=== PATIENT | male | born 1970 | race Caucasian/White ===

== ENCOUNTER 2018-05-21 17:16 | Inpatient (IN) | payer BC, OTHER ==
[~2018-05-21] VITALS: Ht 175.3 cm; Wt 78.9 kg
[2018-05-21 17:45] VITALS: BP 115/85
--- NOTE | 2018-05-21 18:00 | NUR ---
pre-assessment: pt was seen in intake office and appears to be severely intoxicated with stimulants, pt is over stimulated and hyper. pt has scattered thoughts. pt has own breathalyzer and has to check it at very ceratin times. pt's v/s stable. explained unit protocols and procedures.
[2018-05-21] MEDS ORDERED: FLUT10.62 IH (18:43)
[2018-05-21] MEDS ORDERED: FLUT100D IH (18:43)
[2018-05-21] MEDS ORDERED: BUPR300T54 PO (18:46)
[2018-05-21] MEDS ORDERED: LAMO200T2 PO (18:46)
--- NOTE | 2018-05-21 20:00 | NUR ---
Admission The patient is a 48 year old male who presents to [facility] for medically supervised withdrawal from ETOH-Vodka and is also noted to currently be using Methamphetamines and Cocaine. Patient was escorted on to the during AM shift. Skin check rendered by morning RACKET STRINGER and endorsing nurse with skin noted to be clear and intact. Patient is noted to be ambulatory with steady gait. Patient is noted to be anxious, hyper vigilant, easily irritable, racing thoughts, restless, with depressed affect. He is noted to be disheveled and unkempt with dirty finger nails. Patient is noted to answer questions with quick one word answers, prompting for patient to repeat himself. He is alert and oriented x4, speech is clear, but patient avoids eye contact and is noted to during assessment to keep his eyes closed. Patient reports his substance use as: 1. ETOH-Vodka: patient took his first drink of vodka at the age of 14. He currently is drinking 120ml of vodka every night approx at 2000. His last drink was 05/21/18 at 1000 drinking 120mls of vodka. Patient also explains of drinking 180ml on the weekends which consist of Friday, Friday, and Friday. 2. Methamphetamines: patient reports first using at the age of 46. He is currently using an ounce a week, using 3.5 GM a day. He reports using via IV, inhalation, and intranasal. He describes it as Hot railing. His last use noted 05/21/18 at 1000 using 3.5GM via intranasal. 3. Cocaine: Patient reports of first using cocaine at the age of 29. He describes of using a 3.5GM throughout the week and using 1GM daily via intranasal, IV, or inhalation. Patient reports last use 05/21/18 1000 using 1GM via inhalation. When asked if patient was experiencing any signs and symptoms of withdrawal patient states complete exhaustion. Patient is noted to be tremulous, flushed face, restless, and light sensitivity. Patient denies any seizure history. He also denies any withdrawal induced delirium; withdrawal induced cardiac complications, Overdoses, or Blackouts. Patient denies any suicidal ideations or homicidal ideations. Patient denies any history of Involuntary Psych Hospitalization. He denies a current PCP or psychiatrist. Patient reports past medical history of Anxiety and Depression with current home medications of Lamictal 200mg QHS and Wellbutrin 300mg daily. Patient has struggled with multiple attempts at sobriety and reports the longest sobriety that he maintained was 8 years during his mid thirties and early forties. Patient also reports of one previous admission for [facility] substance [facility] approx 3 years ago staying for a total of 5 days. He reports of first using due to the resentment I had towards my for cheating on me and the inability of dealing with the divorce. Patient is noted to be motivated to maintain sobriety and explains of wanting to get sober, "I want to gain custody of my son. I want to have a relationship with my family. I want to do well in my career." He also verbalizes of wanting to continue residential treatment and IOP programs. He states I will do what I have to do. He reports the cause of his relapse is due to complete boredom, increased cravings, self pity, and loneliness. Patient reports of attempting to get sober previously but states its the exhaustion. I get tired of feeling like crap so I use again. When describing the consequences of his habits patient explains Im currently fighting for custody of my son. I am going through a nasty divorce. Its just taking such a toll on everything. Patient states his support system consists of his family, sponsor, sober friends, and classmates. Vital Signs rendered and noted as 121/76, 75, 18, 98.0, 100%, 0/10 pain. Breathing is even and non labored. Lung sounds clear. Bowel sounds active in all quadrants. Patient follows a regular diet. No known allergies. Full code. Height is 59 and weight is 174lbs. Smoking approximately 20 cigarettes a day. Educated patient about plan of care including detox, group therapy, individual therapy, discharge planning and he was able to verbalize understanding. Admission CIWA noted to be 18. All information was relayed to MD with new orders for PRN medications for increased signs and symptoms of withdrawal. Labs ordered and rendered. All needs attended to promptly. Will continue plan of care as ordered. Addendum: 05/22/18 at 0659 by DIPAK JUNIOR LVN Clarification: patient currently using 120mls of vodka daily for a total of 3 years.
[2018-05-21 20:20] VITALS: BP 121/76
[2018-05-21] MEDS ORDERED: THIAMINE HCL 200 MG/2 ML VIAL IM ONE (20:30)
[2018-05-21] MEDS ORDERED: ONDANSETRON ODT 4 MG TAB.RAPDIS SL PRN (20:30)
[2018-05-21] MEDS ORDERED: MIRALAX 17 GM POWD.PACK PO PRN (20:30)
[2018-05-21] MEDS ORDERED: LORAZEPAM 2 MG/1 ML VIAL IM PRN (20:30)
[2018-05-21] MEDS ORDERED: ACETAMINOPHEN 325 MG TABLET PO PRN (20:30)
[2018-05-21] MEDS ORDERED: DICYCLOMINE HCL 20 MG TABLET PO PRN (20:30)
[2018-05-21] MEDS ORDERED: MAG HYDROX/AL HYDROX/SIMETH 30 ML LIQUID UDC PO PRN (20:30)
[2018-05-21] MEDS ORDERED: ONDANSETRON 4 MG/2 ML VIAL IM PRN (20:30)
[2018-05-21] MEDS ORDERED: CLONIDINE HCL 0.1 MG TABLET PO PRN (20:30)
[2018-05-21] MEDS ORDERED: MAGNESIUM HYDROXIDE 30 ML LIQUID UDC PO PRN (20:30)
[2018-05-21] MEDS ORDERED: LORAZEPAM 1 MG TABLET PO PRN (20:30)
[2018-05-21] MEDS ORDERED: LOPERAMIDE HCL 2 MG CAPSULE PO PRN ×2 (20:30)
[2018-05-21 20:42] LABS: BASOPHILS # (AUTO) 0.1 K/uL (0.0-8.0); BASOPHILS % (AUTO) 0.8 % (0.0-2.0); EOSINOPHILS # (AUTO) 0.3 K/uL (0.0-0.7); EOSINOPHILS % (AUTO) 3.2 % (0.0-7.0); HEMATOCRIT 47.2 % (36.7-47.1); LYMPHOCYTES # (AUTO) 2.8 K/uL (20.0-40.0); LYMPHOCYTES % (AUTO) 26.1 % (20.5-51.5); MEAN CORPUSCULAR HGB CONC 34 g/dL (32.5-36.3); MEAN CORPUSCULAR VOLUME 94.4 fL (73.0-96.2); MONOCYTES # (AUTO) 0.9 K/uL (2.0-10.0); MONOCYTES % (AUTO) 8.8 % (0.0-11.0); NEUTROPHILS # (AUTO) 6.4 K/uL (1.8-8.9); NEUTROPHILS % (AUTO) 61.1 % (38.5-71.5); PLATELET COUNT (AUTO) 325 K/uL (152-348); WHITE BLOOD COUNT (AUTO) 10.6 K/uL (3.6-10.2)
[2018-05-21 20:52] LABS: ETHANOL < 3 MG/DL (0-0)
[2018-05-21 20:55] LABS: ALANINE AMINOTRANSFERASE 53 U/L (16-63); ALKALINE PHOSPHATASE 109 U/L (50-136); AMYLASE 100 U/L (25-115); ASPARTATE AMINOTRANSFERASE 32 U/L (15-37); BILIRUBIN,TOTAL 0.3 mg/dL (0.2-1.0); CARBON DIOXIDE 31 mmol/L (21-32); CHLORIDE 101 mmol/L (98-107); CREATININE 1.1 mg/dL (0.6-1.3); GLUCOSE 100 mg/dL (74-106); LIPASE 389 U/L (73-393); POTASSIUM 3.7 mmol/L (3.5-5.1); TOTAL PROTEIN, SERUM 7.6 g/dL (6.4-8.2); UREA NITROGEN, BLOOD 14 mg/dL (7-18)
[2018-05-21 20:57] LABS: *AMPHETAMINE, URINE POSITIVE (NEGATIVE); *BARBITURATE, URINE NEGATIVE (NEGATIVE); *CANNABINOID, URINE POSITIVE (NEGATIVE); *COCCAINE, URINE POSITIVE (NEGATIVE); *OPIATE, URINE NEGATIVE (NEGATIVE); *PHENCYCLIDINE SCREEN,URINE NEGATIVE (NEGATIVE)
[2018-05-21] MEDS ORDERED: LAMOTRIGINE 200 MG TABLET PO ONE (21:00)
[2018-05-21] MEDS: LORAZEPAM 1 MG TABLET PO PRN (21:11)
--- NOTE | 2018-05-21 21:15 | NUR ---
PRN Medication Administration Patient is noted with an increased CIWA of 18. He is noted to be anxious, easily irritable, restless, hyper vigilant, tremulous, flushed face, and verbalizing light sensitivity. Patient reports of taking Lamictal 200mg QHS with medication reconciled. Relayed to psychiatrist with a onetime dose to be administered. PRN Ativan 2mg and ministered with one time dose of Lamictal 200mg. All needs attended to promptly. Will continue to monitor.
[2018-05-21 21:16] LABS: THYROID STIMULATING HORMONE 1.019 mIU/mL (0.358-3.740)
--- NOTE | 2018-05-21 22:15 | NUR ---
PRN Medication Reassessment Patient is noted in bed with his eyes closed. Breathing even and non labored. No signs of restlessness or facial grimacing noted. PRN Ativan 2mg noted to be effective. Will continue to monitor.
[2018-05-22 00:44] VITALS: BP 95/55
[2018-05-22 04:04] VITALS: BP 96/51
--- NOTE | 2018-05-22 07:07 | NUR ---
End of Shift Patient is noted in bed with his eyes close. Breathing even and non labored. patient continues on PRN medications for increased signs and symptoms of withdrawal. PRN Ativan 2mg administered for CIWA of 18. medication was noted to be effective. patient was noted to sleep a total of 9 hours. Last noted CIWA 7. All needs attended to promptly. Will endorse to continue plan of care as ordered.
--- NOTE | 2018-05-22 07:30 | NUR ---
Start of Shift Export Freight Clerk received report on 48 year old male admitted to [facility] on 05/21/18 for medical management of ETOH withdrawals. Pt endorses NKA, full code and regular diet. Denies any PMH, with no history of seizures. A PPH of anxiety and depression. Pt not currently on a taper, last CIWA 7, per NOC report. Pt was administered 2mg Ativan(withdrawals) as PRN medication on NOC, per report. Export Freight Clerk encounters pt in pts room, resting with eyes closed, even and unlabored respirations noted. Bed in low position, with wheels locked and side rails up x2. Will continue to monitor, support and encourage according to plan of care.
[2018-05-22 08:00] VITALS: BP 126/63
--- NOTE | 2018-05-22 08:00 | NUR ---
CIWA 12 Pt is anxious and restless, with restless legs. Pt with fine tremors and is diaphoretic. Complaints of nausea and chills. Will continue to monitor, support and encourage according to plan of care.
[2018-05-22] MEDS ORDERED: TUBERCULIN,PURIF.PROT.DERIV. 5 TU/0.1 ML TEST ID ONE (09:00)
[2018-05-22] MEDS: FOLIC ACID 1 MG TABLET PO SCH (09:13)
[2018-05-22] MEDS: IBUPROFEN 600 MG TABLET PO PRN (09:13)
[2018-05-22] MEDS: THIAMINE HCL 100 MG TABLET PO SCH (09:14)
[2018-05-22] MEDS: LORAZEPAM 1 MG TABLET PO PRN (09:14)
[2018-05-22] MEDS: MULTIVITAMINS,THERAPEUTIC TABLET PO SCH (09:14)
--- NOTE | 2018-05-22 09:14 | NUR ---
PRN Ibuprofen(Pain) and Ativan(withdrawal) Pt complains of back pain of 5/10 and requests medication for back pain. Intellectual Property Manager administered Ativan for CIWA of 12. Pt tolerated well. Will continue to monitor, support and encourage according to plan of care.
--- NOTE | 2018-05-22 10:14 | NUR ---
PRN Re-Assessment Pt is resting with eyes closed, even and unlabored respirations noted. Will continue to monitor, support and encourage according to plan of care.
[2018-05-22] MEDS ORDERED: 5 DAY TAPER VALIUM-SERENITY PROTOCOL PO PRN (11:30)
--- NOTE | 2018-05-22 12:00 | NUR ---
CIWA 11 Pt is tremulous, diaphoretic and anxious. Pt displays restless legs and is nauseous. Will continue to monitor, support and encourage according to plan of care.
[2018-05-22 12:21] VITALS: BP 115/76
[2018-05-22] MEDS ORDERED: Medication Not On Formulary EA (Bupropion Hcl (Bupropion Xl) 1 TAB) PO SCH (12:45)
[2018-05-22] MEDS: DIAZEPAM 10 MG TABLET PO SCH ×3 (13:26→20:41)
[2018-05-22] MEDS: buPROPion XL 150 MG TAB.SR.24H PO SCH (13:26)
[2018-05-22] MEDS: LAMOTRIGINE 200 MG TABLET PO SCH (13:26)
[2018-05-22 16:30] VITALS: BP 94/53
--- NOTE | 2018-05-22 16:30 | NUR ---
CIWA 13 Pt remains somnolent, irritable, diaphoretic, tremulous, anxious and restless. With complains of chills and nausea. Will continue to monitor, support and encourage according to plan of care.
--- NOTE | 2018-05-22 19:02 | NUR ---
End of Shift Materials Research Engineer provided report on 48 year old male admitted to [facility] on 05/21/18 for medical management of ETOH withdrawals. Pt endorses NKA, full code and regular diet. Denies any PMH, with no history of seizures. A PPH of anxiety and depression. Pt was administered 2mg Ativan(withdrawals) as PRN medication, prior to pt being started on a 5 day Valium taper with last CIWA 13 . Pt is A/O x4 and able to make needs known when not resting. Pt has been hyper-somnolent, but startles to wake when racebook writer approaches pt. Pt has a linear thought process and pressured speech pattern. Pt is hyper-active and restless, while resting. Pt is anxious, diaphoretic and tremulous. Bed in low position, with wheels locked and side rails up x2.
--- NOTE | 2018-05-22 19:30 | NUR ---
Start of Shift Patient Received. Per endorsement, patient started on a 5 day Valium taper and is tolerating medication well. Patient received PRN Ativan 2mg and Motrin with medication noted to be effective. Last noted CIWA 13. Upon rounds patient is noted in bed awake and watching TV. Breathing even and non labored. Patient is noted to be hyperactive and restless. All needs attended to promptly. Will continue plan of care as ordered.
[2018-05-22 20:35] VITALS: BP 107/69
[2018-05-23 00:44] VITALS: BP 101/58
[2018-05-23 04:12] VITALS: BP 116/74
[2018-05-23] MEDS: HYDROXYZINE PAMOATE 25 MG CAPSULE PO PRN (04:17)
[2018-05-23] MEDS: IBUPROFEN 600 MG TABLET PO PRN ×2 (04:18→18:41)
--- NOTE | 2018-05-23 04:20 | NUR ---
PRN Medication Administration Patient is noted awake and verbalizing increased anxiety and body aches. patient states "its because aaron been in bed alot my body is sore." PRN Motrin and Vistaril administered. Will continue to monitor.
--- NOTE | 2018-05-23 05:20 | NUR ---
PRN Medication reassessment Patient is noted in bed with eyes closed. breathing even and non labored. no facial grimacing or restlessness noted. Patient received PRN Motrin and Vistaril for body aches and anxiety with medication noted to be effective. will continue to monitor
--- NOTE | 2018-05-23 07:17 | NUR ---
End of shift Patient is noted in bed sleeping. Breathing even and non labored. Patient started on a 5 day valium taper and is tolerating medication well. He received PRN Motrin and Vistaril with medication noted to be effective. Last noted CIWA 14. Patient noted to sleep a total of 9 hours. All needs attended to promptly. Will endorse to continue plan of care as ordered.
[2018-05-23 08:00] VITALS: BP 117/63
--- NOTE | 2018-05-23 08:00 | NUR ---
Start of Shift/CIWA Assessment: Received patient in his room. He is easily awoken and is hypervigilant upon waking. His eyes become wide open and is hyperverbal. He states "I'm so exhausted." He appears disheveled, anxious, unshaven and appears to have difficulty concentrating, he has flight of ideas and loose thoughts with disorganized thinking. He is also noted with sweaty palms, anxious and agitated, and with gross tremors seen. Noted with complain of 5/10 generalized muscle aches. Current CIWA 16. Encouraged patient to increase hygiene and maintain his personal space. Encouraged patient to throw his garbage in the trash. Patient is a 48 year old male admitted for ETOH withdrawal who was placed on a 5-day Valium taper as ordered to manage his withdrawal symptoms. Per night report, he was given Vistaril and Motrin. Slept for a total of 9 hours. Last CIWA 14 at 0800. All needs met and attended. Will continue to monitor closely.
[2018-05-23 08:11] LABS: HEPATITIS B SURFACE AG Negative (Negative)
[2018-05-23] MEDS: buPROPion XL 150 MG TAB.SR.24H PO SCH (08:53)
[2018-05-23] MEDS: MULTIVITAMINS,THERAPEUTIC TABLET PO SCH (08:53)
[2018-05-23] MEDS: THIAMINE HCL 100 MG TABLET PO SCH (08:53)
[2018-05-23] MEDS: DIAZEPAM 10 MG TABLET PO SCH ×3 (08:54→20:30)
[2018-05-23] MEDS: FOLIC ACID 1 MG TABLET PO SCH (08:54)
--- NOTE | 2018-05-23 08:54 | NUR ---
Tylenol 650 mg PO given: Tylenol 650 mg PO given for complain of generalized muscle aches of 5/10. Non-pharmacological interventions provided but ineffective. Medicated patient with Tylenol 650 mg PO as ordered. Will monitor for effectiveness.
[2018-05-23] MEDS: LAMOTRIGINE 200 MG TABLET PO SCH (08:57)
--- NOTE | 2018-05-23 09:54 | NUR ---
Re-assessment: Tylenol Patient verbalizes relief from generalized muscle aches. He states his pain level is now a 0 out of 10. PRN Tylenol was effective.
--- NOTE | 2018-05-23 10:30 | NUR ---
Therapist prompted client to attend group therapy.
[2018-05-23 12:00] VITALS: BP 99/58
--- NOTE | 2018-05-23 12:00 | NUR ---
CIWA Assessment: CIWA 12, patient continues to present with s/s of withdrawal m/b anxiety, agitation, diaphoresis, gross tremors, facial flushing, clammy skin and difficulty concentrating. Support provided. Offered PRNs but refused at this time. Will continue to monitor.
[2018-05-23 16:00] VITALS: BP 101/60
--- NOTE | 2018-05-23 16:00 | NUR ---
CIWA Assessment: CIWA 10, patient continues to present with gross tremors, facial flushing, difficulty concentrating, sweats, fatigue and generalized discomfort. Patient was unable to go to group but is now requesting for snacks. Snacks was provided. Offered PRNs. Support provided. Will continue to monitor.
--- NOTE | 2018-05-23 17:41 | NUR ---
PRN REASSESSMENT Patient states the PRN Tylenol and Motrin was effective.
--- NOTE | 2018-05-23 18:41 | NUR ---
Motrin 600 mg PO given: Patient complains of 6/10 back pain. Non-pharmacological interventions provided but ineffective. Medicated patient with Motrin 600 mg PO as ordered. Will monitor for effectiveness.
--- NOTE | 2018-05-23 19:03 | NUR ---
End of Shift Notes: Patient continues to be on 5-day Valium taper as ordered to manage symptoms related to ETOH withdrawal. VS monitored closely. No significant abnormalities noted. Withdrawal symptoms were closely monitored. Initial CIWA 14, patient presented with difficulty concentrating, disorganized thoughts, anxiety, agitation, diaphoresis, gross tremors, and myalgia. Medicated patient with Tylenol 650 mg PO at 0854 for myalgia and Motrin at 1841 for back pain. Last CIWA 10. Patient stayed asleep for most of the shift. Encouraged to participate in group and activities. Appetite good. All needs met and attended. Will continue to monitor.
--- NOTE | 2018-05-23 19:30 | NUR ---
Patient is a 48 y.o male admitted on 05/21/2018 for ETOH withdrawal. Patient is on a 5 day Valium taper. Last CIWA reported as 10. Patient did not participate in group. Upon start of shift, patient is noted to be in bed, eyes closed, curled up in blanket, disheveled. Room is untidy, partially empty beverages noted. Room is unkempt. Bed is in low position, both side rails up. Will continue to monitor.
--- NOTE | 2018-05-23 20:00 | NUR ---
CIWA ASSESSMENT Patient CIWA at 9. Patient isolative, agitated, complains of general discomfort.
[2018-05-23 20:20] VITALS: BP 91/56
--- NOTE | 2018-05-24 | NUR ---
CIWA ASSESSMENT Refused, in bed with eyes closed.
[2018-05-24 02:38] VITALS: BP 112/73
[2018-05-24] MEDS: IBUPROFEN 600 MG TABLET PO PRN ×2 (02:44→12:50)
[2018-05-24] MEDS: HYDROXYZINE PAMOATE 25 MG CAPSULE PO PRN (02:44)
--- NOTE | 2018-05-24 02:45 | NUR ---
PRN Medication Administration Patient is noted awake and verbalizing increased anxiety and pain due to generalized body aches. PRN Motrin and Vistaril administered. Will continue to monitor.
--- NOTE | 2018-05-24 03:45 | NUR ---
PRN Medication Reassessment Patient is noted in bed with his eyes closed. Breathing even and non labored. No signs of restlessness or discomfort noted. PRN Vistaril and Motrin noted to be effective. Will continue to monitor.
--- NOTE | 2018-05-24 04:51 | NUR ---
ALONDRA Pt up since 04:05, pt agitated over regarding private issue, does not want to do anything other than resolve his problem. SALES AND SERVICE SPECIALIST redirected pt numerous times to volume of speech and maintaining physical boundaries around nursing station.
--- NOTE | 2018-05-24 07:00 | NUR ---
END OF SHIFT NOTE Patient is a 48 y.o male admitted on 05/21/2018 for ETOH withdrawal. Patient is on a 5 day Valium taper. Last CIWA 9. Patient did not participate in evening group. Pt out of bed at approximately 4am, agitated and anxious over his denying communication with son. Pt is demanding, repetitive and needs several redirections to the treatment plan. Pt malodorous. Call light within reach.
--- NOTE | 2018-05-24 07:44 | NUR ---
Start of shift note; Received report from night nurse. Patient is a 48 year old male admitted on 05/21/18 for ETOH withdrawal. Patient was placed on a 5 day Valium taper. Patient received PRN Vistaril and Motrin noted to be effective. Patient's last CIWA score is 9 per endorsement. Patient is currently resting with eyes closed, respiration of 18 noted, easily awaken. Will re-assess when patient is fully awake. All safety measures secured. Will continue to monitor patient.
[2018-05-24 08:00] VITALS: BP 98/66
--- NOTE | 2018-05-24 08:30 | NUR ---
CIWA Assessment; Patient is AOX4 presented with anxiety, agitation, avoidant to eye contact, patient is complaining of fatigue, anhedonia, difficulty concentrating, generalized discomfort, muscle aches, restless legs, tremors, vivid dreams and yawning. Patient remains on Valium taper to help reduce withdrawal symptoms. Will continue to monitor patient. Addendum: 05/24/18 at 1013 by TAYE EDWARDS LVN CIWA score of 10 noted.
[2018-05-24] MEDS: DIAZEPAM 5 MG TABLET PO SCH ×4 (09:26→21:35)
[2018-05-24] MEDS: FOLIC ACID 1 MG TABLET PO SCH (09:26)
[2018-05-24] MEDS: buPROPion XL 150 MG TAB.SR.24H PO SCH (09:26)
[2018-05-24] MEDS: MULTIVITAMINS,THERAPEUTIC TABLET PO SCH (09:26)
[2018-05-24] MEDS: THIAMINE HCL 100 MG TABLET PO SCH (09:26)
[2018-05-24] MEDS: LAMOTRIGINE 200 MG TABLET PO SCH (09:28)
[2018-05-24 12:00] VITALS: BP 132/78
--- NOTE | 2018-05-24 12:00 | NUR ---
CIWA Assessment; Patient is AOX4 continues to show s/s of withdrawals, CIWA score of 10 manifested by anxiety, agitation, avoidant to eye contact, patient is complaining of fatigue, anhedonia, difficulty concentrating, generalized discomfort, muscle aches, restless legs, tremors, vivid dreams and yawning. Patient remains on Valium taper to help reduce withdrawal symptoms. Will continue to monitor patient.
--- NOTE | 2018-05-24 12:50 | NUR ---
PRN medication; Patient is complaining of back pain rated 6/10 , PRN Motrin 600mg PO given for pain. Will continue to monitor patient for effectiveness of medication.
--- NOTE | 2018-05-24 13:50 | NUR ---
Re-assessment; Patient is AOX4, Patient pain at this time. PRN Motrin noted to be effective.
[2018-05-24 16:00] VITALS: BP 131/78
--- NOTE | 2018-05-24 16:00 | NUR ---
CIWA Assessment; Patient is AOX4 continues to show s/s of withdrawals, CIWA score of 9 manifested by anxiety, agitation, avoidant to eye contact, patient is complaining of fatigue, anhedonia, difficulty concentrating, generalized discomfort, muscle aches, restless legs, tremors, vivid dreams and yawning. Patient remains on Valium taper to help reduce withdrawal symptoms. Medication were effective in reducing withdrawal symptoms.
--- NOTE | 2018-05-24 18:45 | NUR ---
End of shift note; Patient is AOX4 presented anxiety, agitation, avoidant to eye contact, patient is complaining of fatigue, anhedonia, difficulty concentrating, generalized discomfort, muscle aches, restless legs, tremors, vivid dreams and yawning. Patient remains on 5 day Valium taper to help reduce withdrawal symptoms. Patient received PRN Motrin for pain noted to be effective. Patient's last CIWA is 10 at 1600. Patient remained compliant with treatment plan and medication regime. All safety measures secured. Met all needs.
--- NOTE | 2018-05-24 19:30 | NUR ---
START OF SHIFT Pt is a 48 year old male admitted on 05/21/18 for ETOH withdrawal and continues on a 5 day Valium taper as ordered. Pt received PRN Motrin and was noted to be effective. Patient's last CIWA score is 10 per endorsement. Patient is currently resting in bed with eyes closed,arousable on approach, respiration even and non labored,no s/s of distress noted. All safety measures in place. Will continue to monitor.
[2018-05-24 20:00] VITALS: BP 112/65
--- NOTE | 2018-05-24 20:00 | NUR ---
CIWA ASSESSMENT CIWA score of 8 m/b anxiety,poor eye contact, pt is complaining of generalized pain/discomfort, refused to take any PRN medications; remains on Valium taper as ordered.
[2018-05-25] VITALS: BP 109/61
--- NOTE | 2018-05-25 | NUR ---
CIWA DEFERRED DUE TO PT BEING ASLEEP.BREATHING IS EVEN AND NON LABORED,NO S/S OF DISTRESS NOTED,WILL CONTINUE TO MONITOR.
--- NOTE | 2018-05-25 04:00 | NUR ---
CIWA DEFERRED PT IS ASLEEP.BREATHING IS EVEN AND NON LABORED,NO S/S OF DISTRESS NOTED,V/S REFUSED.WILL CONTINUE TO MONITOR.
[2018-05-25] MEDS: IBUPROFEN 600 MG TABLET PO PRN ×3 (05:49→21:57)
[2018-05-25] MEDS: HYDROXYZINE PAMOATE 25 MG CAPSULE PO PRN (05:53)
--- NOTE | 2018-05-25 05:54 | NUR ---
PRN MEDS Pt woke up c/o having anxiety due to terrible nightmare and severe back pain 03/31.PRN Motrin 600 mg PO given for back pain and PRN Vistaril 25 mg po given for anxiety.Will monitor for effectiveness.
--- NOTE | 2018-05-25 06:58 | NUR ---
END OF SHIFT Pt is a 48 year old male admitted on 05/21/18 for ETOH withdrawal and continues on a 5 day Valium taper as ordered. Pt received PRN Motrin and Vistaril this morning and was noted to be effective. Patient's last CIWA score was 8. Patient is currently resting in bed with eyes closed. Pt slept 7 hours last night,woke up around 6 am c/o pain and anxiety;fluid intake was 775 mls,voided x 1;no BM reported. All safety measures in place. Will continue to monitor.
[2018-05-25 07:25] LABS: BASOPHILS # (AUTO) 0.1 K/uL (0.0-8.0); BASOPHILS % (AUTO) 0.7 % (0.0-2.0); EOSINOPHILS # (AUTO) 0.4 K/uL (0.0-0.7); EOSINOPHILS % (AUTO) 4.4 % (0.0-7.0); HEMATOCRIT 47.2 % (36.7-47.1); HEMOGLOBIN 15.9 g/dL (12.5-16.3); LYMPHOCYTES # (AUTO) 2.6 K/uL (20.0-40.0); LYMPHOCYTES % (AUTO) 30.8 % (20.5-51.5); MEAN CORPUSCULAR HEMOGLOBIN 31.7 uug (23.8-33.4); MEAN CORPUSCULAR HGB CONC 34 g/dL (32.5-36.3); MEAN CORPUSCULAR VOLUME 93.8 fL (73.0-96.2); MONOCYTES # (AUTO) 0.8 K/uL (2.0-10.0); MONOCYTES % (AUTO) 9.8 % (0.0-11.0); NEUTROPHILS # (AUTO) 4.5 K/uL (1.8-8.9); NEUTROPHILS % (AUTO) 54.3 % (38.5-71.5); PLATELET COUNT (AUTO) 291 K/uL (152-348); RED BLOOD CELL COUNT(AUTO) 5.03 MIL/uL (4.06-5.63); WHITE BLOOD COUNT (AUTO) 8.3 K/uL (3.6-10.2)
[2018-05-25 08:00] VITALS: BP 113/61
--- NOTE | 2018-05-25 08:00 | NUR ---
START OF SHIFT Pt is a 48 yr old male, AA&Ox4. Pt was admitted on 05/21/18 for ETOH withdrawal and is on 5 day Valium taper as ordered. Received report from shift supervisor nurse. Pt received Motrin PRN and Vistaril PRN during the night. Medication was effective. Pt slept for 7 hrs. Last CIWA score was 8. Pt is noted with anxiety and agitation in the morning. Pt was stating out loud, "I'm I leaving already? I thought I was only suppose to stay for two days". Pt was educated on the plan of care. Pt was passive and avoidant. Pt needs further education on plan of care. CIWA score was 10 this morning. Pt was encouraged increase fluid intake for hydration. Safety precautions observed. will continue to monitor.
[2018-05-25] MEDS: LAMOTRIGINE 200 MG TABLET PO SCH ×2 (09:00→21:45)
--- NOTE | 2018-05-25 09:00 | NUR ---
MEDICATION REFUSED Pt refused to take Lamictal 200mg PO as scheduled at 0900. Pt states he takes Lamictal at bedtime. Will f/u with Dr. Gilman.
[2018-05-25] MEDS: FOLIC ACID 1 MG TABLET PO SCH (09:31)
[2018-05-25] MEDS: MULTIVITAMINS,THERAPEUTIC TABLET PO SCH (09:31)
[2018-05-25] MEDS: THIAMINE HCL 100 MG TABLET PO SCH (09:31)
[2018-05-25] MEDS: buPROPion XL 150 MG TAB.SR.24H PO SCH (09:31)
[2018-05-25] MEDS: DIAZEPAM 5 MG TABLET PO SCH ×3 (09:31→21:07)
[2018-05-25 12:00] VITALS: BP 121/71
--- NOTE | 2018-05-25 12:30 | NUR ---
BEVERLEY BENADRYL 50 MG PO GIVEN FOR C/O INSOMNIA.WILL MONITOR. Addendum: 05/25/18 at 2335 by PRINCE DUGGAN RN ERROR-WRONG TIME.
--- NOTE | 2018-05-25 15:00 | NUR ---
MEDICATION REFUSED Pt refused to take Valium 5mg PO as scheduled at 1500. Pt states, "I am not withdrawing and I was only suppose to stay for two days". Pt was educated on medication regimen and plan of care. further education is needed. Pt continue to refuse to take Valium 5mg PO. Dr. Miller is made aware. Pt was also c/o generalized body aches . Motrin 600mg PO PRN was given as ordered. Encouraged increase fluid intake. Will continue to monitor. Last CIWA score was 10 at 1200 for increase anxiety, agitation and facial sweats.
[2018-05-25 16:00] VITALS: BP 139/86
--- NOTE | 2018-05-25 18:59 | NUR ---
END OF SHIFT Pt is a 48 yr old male, AA&Ox4. Pt was admitted on 05/21/18 for ETOH withdrawal and is on 5 day Valium taper as ordered. Pt has been observed with increase anxiety and agitation during the day. Pt was stating of leaving AMA due to work related. Pt was spoken to by hand sign writer to continue with plan of care and agreed to stay. Pt refused to take Valium 5mg PO as scheduled at 1500, MD was made aware. Pt was encouraged to participate in group therapy. Last CIWA score was 9 for increase anxiety, agitation and sweats. Pt was encouraged increase fluid intake for hydration. Pt did receive Motrin 600mg PO PRN for generalized muscle aching and was effective. Safety precautions observed. Call light is within reach. Endorsed to production control clerk nurse to continue with care.
--- NOTE | 2018-05-25 19:30 | NUR ---
START OF SHIFT Pt is a 48 yr old male admitted for ETOH withdrawal ;continues on 5 day Valium taper as ordered. Per day shift report, Pt was increasingly anxious and agitated, wanting to leave AMA but finally agreed to stay. Pt refused to take Valium 5mg PO as scheduled at 1500, MD was made aware. Last CIWA score was 9 . Motrin 600mg PO PRN was given for pain and was effective. Pt is A/A/O X 4, focused on making a phone call ,assistance provided. All safety measures in place. Will continue to monitor.
[2018-05-25 20:00] VITALS: BP 128/80
--- NOTE | 2018-05-25 20:00 | NUR ---
CIWA ASSESSMENT CIWA score of 9 m/b extreme anxiety,unable to sit still,hyperverbal ,loud,complaining of generalized pain/discomfort, refused to take any PRN medications; remains on Valium taper as ordered.
--- NOTE | 2018-05-25 21:57 | NUR ---
PRN MOTRIN 600 MG PO GIVEN FOR C/O BACK PAIN 03/31.WILL MONITOR FOR EFFECTIVENESS.
--- NOTE | 2018-05-25 23:00 | NUR ---
PRN MOTRIN IS EFFECTIVE.BACK PAIN IS 1/10.
[2018-05-25] MEDS: diphenhydrAMINE 50 MG CAPSULE PO PRN (23:30)
--- NOTE | 2018-05-25 23:30 | NUR ---
PRN BENADRYL 50 MG PO GIVEN FOR C/O INSOMNIA.WILL MONITOR.
[2018-05-26] VITALS: BP 121/75
--- NOTE | 2018-05-26 | NUR ---
CIWA ASSESSMENT CIWA score of 8.Pt observed lying in bed,remains anxious and restless,begining to feel sleepy.
--- NOTE | 2018-05-26 00:30 | NUR ---
PRN BENADRYL IS EFFECTIVE.PT IS SLEEPING,NO S/S OF DISTRESS NOTED.WILL CONTINUE TO MONITOR.
--- NOTE | 2018-05-26 04:00 | NUR ---
CIWA DEFERRED PT IS ASLEEP.BREATHING IS EVEN AND NON LABORED,NO S/S OF DISTRESS NOTED,V/S REFUSED.WILL CONTINUE TO MONITOR.
--- NOTE | 2018-05-26 06:46 | NUR ---
END OF SHIFT Pt is a 48 year old male admitted on 05/21/18 for ETOH withdrawal and continues on a 5 day Valium taper as ordered. Pt received PRN Motrin and Benadryl last night and was noted to be effective. Patient's last CIWA score was 8. Patient is currently resting in bed with eyes closed. Pt slept 7 hours last night,fluid intake was 740 mls,voided x 2; no BM reported. All safety measures in place,call light is within reach. Will continue to monitor.
--- NOTE | 2018-05-26 07:30 | NUR ---
START OF SHIFT Endorse rcvd from ongoing nurse, PRN Motrin 600mg PO for back pain, Benadryl 50mg PO for insomnia, client slept 7 hrs. Last CIWA 8 @ 1999. Client is in bed, lying on his R side, he sounds asleep, easy to arouse. RR 16, even, non-labored. Call light within reach. Will continue to monitor.
[2018-05-26 08:55] VITALS: BP 107/70
[2018-05-26] MEDS ORDERED: DIAZEPAM 5 MG TABLET PO SCH (09:00)
[2018-05-26] MEDS: MULTIVITAMINS,THERAPEUTIC TABLET PO SCH (09:30)
[2018-05-26] MEDS: THIAMINE HCL 100 MG TABLET PO SCH (09:30)
[2018-05-26] MEDS: FOLIC ACID 1 MG TABLET PO SCH (09:31)
[2018-05-26] MEDS: buPROPion XL 150 MG TAB.SR.24H PO SCH (09:31)
--- NOTE | 2018-05-26 09:31 | NUR ---
CIWA 12 Client is in room, sitting at the edge of bed, he is a/o x 4, he appears disheveled, dark circles under eyes, flushed face, restless, unable to stop moving legs. and difficulty thinking clearly. Client reports agitation, anxiety, chills, fatigue, fine tremors, restless legs, sweating, and yawning. Scheduled Valium 5mg PO administered. Encourage client to attend group therapy to learn skills to maintain sober. Encourage client to increase PO fluid as tolerated to facilitate detox. Call light within reach.
[2018-05-26 12:36] VITALS: BP 118/71
--- NOTE | 2018-05-26 12:40 | NUR ---
CIWA 12 Client appears with flushed cafe, avoidant gaze, tremulous voice, agitated, anxious, and difficulty concentrating. Client reports nausea, anxiety and a sense of panic. Client refused PRN medications for management of withdrawal symptoms. CN notified. Call light within reach.
[2018-05-26 16:55] VITALS: BP 130/77
--- NOTE | 2018-05-26 17:00 | NUR ---
CIWA 9 Client continue to present with anxiety m/b loud, pressured voice, inability to stay still. He repots feeling agitated, anxious, a sense of panic, difficulty concentrating, and fatigue. Client decline PRN medications for management of anxiety. CN and MD notified. Call light within reach.
--- NOTE | 2018-05-26 19:24 | NUR ---
END OF SHIFT Endorse client to incoming nurse, client is in group therapy, a/o x 4. Client continues to present with anxiety, agitation, nausea, difficulty concentrating, and fatigue. Last CIWA 9 @ 1700. MD Miller modified 5 day Valium taper, last dose administered this am. Client is schedule for DC to [facility] tomorrow am. Adequate PO fluid intake 2875mL, void x 5, stool x 4. Consumes 75-100% of meals. Call light within reach.
[2018-05-26 20:00] VITALS: BP 128/79
--- NOTE | 2018-05-26 20:00 | NUR ---
CIWA 9 During the assessment, Px appears anxious. Px stated that his anxiety is 3/10. Mild bilateral hand tremors noted. will continue to monitor
--- NOTE | 2018-05-26 20:00 | NUR ---
Start of Shift Note Received a 48 y/o male px, admitted for medically supervised withdrawal from ETOH. Px is also using methamphetamine and cocaine. Px completed a modified 5 day Valium taper started on 05/22/2018. He is to be D/C tomorrow, 05/27/2018. Px tolerated it. Last reported CIWA 9 by AM shift nurse. During the rounds at 2000, px is awake sitting on the edge of the bed writing on a paper. Px appears anxious. He is disheveled and unshaven. Some food wrappers noted on top of the bed side table. Px stated that his anxiety is 3/10. Mild bilateral hand tremors noted. No other complaints at the moment. Bed on the lowest position, side rails up 2x and call light within reach. Well continue to monitor.
[2018-05-26] MEDS: HYDROXYZINE PAMOATE 25 MG CAPSULE PO PRN (21:53)
[2018-05-26] MEDS: LAMOTRIGINE 200 MG TABLET PO SCH (21:53)
--- NOTE | 2018-05-26 21:53 | NUR ---
PRN Vistaril Px received Vistaril 25 mg PO for anxiety. To reassess after an hour.
--- NOTE | 2018-05-26 23:00 | NUR ---
Reassessment of anxiety Px stated that his anxiety is still the same and he wanted to sleep.
[2018-05-26] MEDS: diphenhydrAMINE 50 MG CAPSULE PO PRN (23:58)
--- NOTE | 2018-05-26 23:58 | NUR ---
PRN Clonidine 0.1mg po and Benadryl 50mg PO given for C/O anxiety and insomnia
[2018-05-27] VITALS: BP 130/80
--- NOTE | 2018-05-27 | NUR ---
CIWA 11 Px is still awake at the moment. Px appears anxious. He just received Benadryl 50 mg PO and Clonidine 0.1 mg PO for anxiety and insomnia. Px stated that his anxiety is 6/10. Mild bilateral hand tremors noted. will continue to monitor.
[2018-05-27 04:00] VITALS: BP 121/77
--- NOTE | 2018-05-27 04:00 | NUR ---
CIWA deferred CIWA deferred due to the px is asleep, to assess if the px is awake per doctor's order. will continue to monitor.
--- NOTE | 2018-05-27 07:05 | NUR ---
End of Shift Note During the shift at 2153, px received Vistaril 25 mg PO for anxiety. It was not effective. At 2358, px received Clonidine 0.1 mg PO and Benadryl 50 mg PO for insomnia. They were effective. Oral intake of 1L, voided 2x, No BM. Px slept for 5.5 hours. Last CIWA 11. At 0630, px is asleep on bed in right side lying position. Bed on the lowest position, side rails up 2x and call light within reach. Well continue to monitor. Px endorsed to AM shift nurse.
--- NOTE | 2018-05-27 07:30 | NUR ---
Start of Shift Note Pt. is 48 y/o male admitted for the medically managed withdrawal from ETOH (Vodka). Pt. was also using methamphetamines and cocaine. Pt. was placed on a 5 day valium taper which he completed yesterday (05/26/18). Pt. is set to be discharged this morning to [facility]. Endorsed from previous shift pt. presented with insomnia and anxiety. Last CIWA of 11. Received pt. in room. Pt. laying in bed with eyes closed, no signs of SOB noted. Safety measures in place. Will continue to monitor pt.'s behavior for safety until discharged from the unit
[2018-05-27 08:00] VITALS: BP 88/60
[2018-05-27] MEDS: THIAMINE HCL 100 MG TABLET PO SCH (08:53)
[2018-05-27] MEDS: FOLIC ACID 1 MG TABLET PO SCH (08:53)
[2018-05-27] MEDS: MULTIVITAMINS,THERAPEUTIC TABLET PO SCH (08:53)
[2018-05-27] MEDS: buPROPion XL 150 MG TAB.SR.24H PO SCH (08:54)
--- NOTE | 2018-05-27 09:40 | NUR ---
Discharge Note Pt. in stable condition. V/S WNL, pt. A/O X 4 and denies any SI, HI, VH, and AH. Educated pt. on discharge plan and pt. verbalize understanding. All discharge paper work signed and placed in blue and black D/C bag. All medications, and personal belongings returned to pt. Last CIWA of 6. Pt. is being discharge per MD order to [facility] with Rx. Pt escorted of unit at this by staff.
== END 2018-05-27 09:40 | disposition other institution (70) | DRG 895 ==
LOC: SRC 17:16
PROVIDERS: ADMIT Family Medicine Addiction Medicine; ATTEND Family Medicine Addiction Medicine
PROC: HZ2ZZZZ Detoxification Services for Substance Abuse Treatment (ICD-10-PCS; principal; 2018-05-21)
PROC: HZ31ZZZ Individual Counseling for Substance Abuse Treatment, Behavioral (ICD-10-PCS; 2018-05-23)
PROC: HZ41ZZZ Group Counseling for Substance Abuse Treatment, Behavioral (ICD-10-PCS; 2018-05-24)
DX: F10.230 Alcohol dependence with withdrawal, uncomplicated (principal); F31.60 Bipolar disorder, current episode mixed, unspecified; F15.20 Other stimulant dependence, uncomplicated; F15.23 Other stimulant dependence with withdrawal; Y90.9 Presence of alcohol in blood, level not specified; Z79.899 Other long term (current) drug therapy; J45.909 Unspecified asthma, uncomplicated; Z79.51 Long term (current) use of inhaled steroids; F41.9 Anxiety disorder, unspecified; F14.90 Cocaine use, unspecified, uncomplicated; D72.829 Elevated white blood cell count, unspecified
CPT/HCPCS: 36415; 70030-TC; 80307; 80324; 80349; 80353; 83690; 83735; 84443; 85025; 86592; 86705; 86803; 87340; 87806; G0480; Q0163